=== PATIENT | female | born 1960 | race Caucasian/White ===

== ENCOUNTER → 2020-06-09 15:59 | Outpatient (CLI) | payer OTHER, SELFPAY ==
--- NOTE | ~2020-06-09 | MM_ITS ---
EXAMINATION: MM diagnostic [facility] BI w ana luisa HISTORY: Palpable lump in the subareolar left breast TECHNIQUE: Craniocaudal, mediolateral, and mediolateral oblique 3-D tomosynthesis images of the nicholas ts were performed and synthetic 2-D images were generated. CAD analysis was submitted and interpreted . COMPARISON: 02/04/2014, 03/10/2012, 05/09/2006 BREAST PARENCHYMAL COMPOSITION: The breasts are heterogeneously dense, which may obscure small masses . FINDINGS: Right breast: There is no evidence of suspicious mass, calcification, or architectural distortion to suggest malignancy. There has been no suspicious interval change. Left breast: There is no evidence of suspicious mass, calcification, or architectural distortion to suggest malignancy. There has been no suspicious interval change. No mammographic correlate is identi fied for the reported subareolar breast lump. IMPRESSION: 1. No mammographic correlate identified for the reported palpable abnormality of the left breast. 2. Further evaluation with targeted left breast ultrasound is recommended. BI-RADS Category 0: Incomplete: Needs additional imaging evaluation. Reviewed, dictated and finalized at location A. LRY STORE MANAGER IMPRESSION: 1. No mammographic correlate identified for the reported palpable abnormality o f the left breast. 2. Further evaluation with targeted left breast ultrasound is recommended. BI-RADS Category 0: Incomplete: Needs additional imaging evaluation.
== END ==
PROVIDERS: PCP Family Medicine; Visit Provider Physician Assistant
DX: N63.0 Unspecified lump in unspecified breast (principal); R92.8 Other abnormal and inconclusive findings on diagnostic imaging of breast
CPT/HCPCS: 77062; 77066; G0279

== ENCOUNTER → 2020-06-10 14:16 | Outpatient (CLI) | payer OTHER, SELFPAY ==
--- NOTE | ~2020-06-10 | US_ITS ---
EXAMINATION: US breast LT limited HISTORY: Palpable lump of the subareolar left breast. TECHNIQUE: Limited left breast ultrasound is performed in the subareolar region. FINDINGS: There is a 4 mm round, circumscribed, hypoechoic mass with no posterior features or interna l vascularity corresponding to the palpable abnormality of the left breast near the nipple. IMPRESSION: Given that this is a new palpable finding, ultrasound-guided biopsy is recommended. BI-RADS category 4, suspicious findings. Reviewed, dictated and finalized at location A. ECT FINANCE ANALYST IMPRESSION: Given that this is a new palpable finding, ultrasound-guided biopsy is recommen ded. BI-RADS category 4, suspicious findings.
== END ==
PROVIDERS: PCP Family Medicine; Visit Provider Family Medicine
DX: N63.23 Unspecified lump in the left breast, lower outer quadrant (principal)
CPT/HCPCS: 76642

== ENCOUNTER 2020-07-01 06:57 | Outpatient (NON) | payer OTHER, SELFPAY ==
[2020-07-01 18:45] LABS: SARS-CoV-2 RNA PCR Negative
== END 2020-07-01 06:58 ==
PROVIDERS: PCP Family Medicine
DX: Z01.818 Encounter for other preprocedural examination (principal); Z20.828 Contact with and (suspected) exposure to other viral communicable diseases
CPT/HCPCS: 87635; C9803; U0003

== ENCOUNTER 2025-04-04 10:23 | Emergency (ER) | payer OTHER, SELFPAY ==
[2025-04-04 10:34] VITALS: BP 104/70; PULSE 62; RESP 16; TEMP 36.8; O2SAT 99
--- NOTE | 2025-04-04 11:12 | ED.FEMALEGU ---
HPI - Female Genitourinary General Chief complaint: Urogenital-Female Stated complaint: UTI Time Seen by Provider: 04/04/25 11:12 Source: patient, RN notes reviewed and old records reviewed Mode of arrival: ambulatory Limitations: no limitations History of Present Illness HPI Narrative: 64-year-old female presents to the [facility] with 1 week history of urinary pain/burning, frequency low back ache. Denies fevers. Has been increasing her fluid intake. No other treatment prior to arrival Related Data Allergies Allergy/AdvReac Type Severity Reaction Status Date / Time No Known Allergies Allergy Unknown Verified 11/01/20 11:22 Review of Systems Review of Systems: All systems reviewed & are unremarkable except as noted in HPI and below Constitutional: Constitutional: Reports no additional constitutional complaints Cardiovascular: Cardiovascular: Reports no additional cardiovascular complaints, Denies chest pain and Denies dyspnea Respiratory: Respiratory: Reports no additional respiratory complaints, Denies chest congestion, Denies cough and Denies dyspnea Gastrointestinal: Gastrointestinal: Reports no additional gastrointestinal complaints Genitourinary: Genitourinary: Reports as per HPI Musculoskeletal: Musculoskeletal: Reports no additional musculoskeletal complaints Integumentary/Breasts: Skin/Breast: Reports system reviewed and no additional complaints, except as docu PMFSH Past Medical History Medical History Mass of lower outer quadrant of left breast Surgical History Surgical History H/O foot surgery H/O lumpectomy Left breast, [facility] Family History Family History Father Lung cancer Social History Social History Smoking status: Never smoker Alcohol intake: current Alcohol use details: socially, moderate Substance use: never Comments At the time of my signature, I reviewed and agree with the nursing past medical, surgical, social, and family history. There is no relevant family history pertinent to the patient complaint. Exam Const: General: cooperative, healthy appearing, comfortable, no acute distress, well developed, alert and well nourished Nutritional Appearance: well nourished Orientation/consciousness: patient oriented x3 Limitations: no limitations HENMT: Head: normal to inspection Eyes: General: appearance normal, both eyes and all related structures Alignment and Position: alignment normal Neck: Neck: normal visual inspection, full ROM, no lymphadenopathy and no meningeal signs Chest: Chest palpation & inspection: normal inspection of the chest Resp: Effort & Inspection: normal respiratory effort and able to speak in complete sentences Auscultation: clear to auscultation bilaterally, no crackles, no rales, no rhonchi and no wheezes Cardio: Rate: regular rate GI: GI Palp: No abdominal tenderness : General: Yes no CVA tenderness Skin: General skin exam: normal color and no rashes or lesions noted Neuro: General: patient oriented x3, gait normal, moves all extremities and no meningeal signs Cognition (Neuro): normal cognition Speech: normal speech Gait exam (Neuro): Normal gait present Extrem: General: normal to inspection, full ROM, capillary refill normal and normal gait Psych: Appearance: grossly normal and well kempt Mental Status: mental status grossly normal Speech and movement: Normal speech and movement present and Clear speech present Affect: normal affect Attitude: cooperative Course Course Level of Care: Express Care Visit Vital Signs Vital signs: Vital Signs Temperature 98.2 F 04/04/25 10:34 Pulse Rate 62 04/04/25 10:34 Respiratory Rate 16 04/04/25 10:34 Blood Pressure 104/70 04/04/25 10:34 Pulse Oximetry 99 04/04/25 10:34 Temperature 98.2 F 04/04/25 10:34 Pulse Rate 62 04/04/25 10:34 Respiratory Rate 16 04/04/25 10:34 Blood Pressure 104/70 04/04/25 10:34 Pulse Oximetry 99 04/04/25 10:34 Reviewed MDM - Female Genitourinary MDM Narrative Medical decision making narrative: Patient sitting in exam room. Patient is nontoxic, vitals are stable. Patient presents with urinary symptoms that have been increasing over the last week. Patient has +3 leukocytes Patient is appropriate for outpatient treatment with close follow-up, will send for urine culture Discharge instructions reviewed with patient, as well as provided in writing per nursing staff. The instructions also include specific and strict return/GO TO THE ER as well as f/u information. All questions have been answered, and the patient deny any further questions with discharge and discharge plan. Some parts of this dictation were generated by voice recognition software and may contain typographical and/or grammatical inaccuracies. Differential Diagnosis Differential diagnosis: Likely urinary tract infection and cystitis Lab Data Labs: Lab Results 04/04/25 Range/Units 11:18 POC Urine Color Yellow POC Urine Clarity Clear POC Urine pH 7.0 POC Ur Specif [place] 1.010 POC Urine Protein Negative (Negative) POC Ur Glucose (UA) Negative (Negative) POC Urine Ketones Negative (Negative) POC Urine Blood 1+ (Negative) POC Urine Nitrite Negative (Negative) POC Urine Bilirubin Negative (Negative) POC Urine Urobilinogen 0.2 POC U Leukocyte Esteras 3+ (Negative) Reviewed Critical Care Time Critical Care Time Critical Care Time: No Discharge Plan Discharge Clinical Impression: Urinary tract infection Qualifiers: Urinary tract infection type: acute cystitis Hematuria presence: with hematuria Qualified Code(s): N30.01 - Acute cystitis with hematuria Patient Disposition: Home Condition: Stable Instructions: Antibiotic Form, Urinary Tract Infection in Women (ED) Additional Instructions: Increased water intake Take Tylenol as needed for pain Take antibiotic as prescribed Today your urine dip showed a probability of a UTI. You have been prescribed an antibiotic. Your urine will be sent to our lab for a culture. If at that time a bacteria grows that is not covered by the antibiotic prescribed you will be notified. Follow-up with primary care For new or worsening symptoms go directly to the emergency room Patient Language: Japanese Prescriptions: New amoxicillin-pot clavulanate 875-125 mg tablet 1 tablet PO Q12H Qty: 10 0RF Follow-up/Referrals: Margaret Huertas MD [Primary Care Provider, Family Practice] - 1 Week Stand Alone Forms: Work/School Release IP Time of Disposition: 11:17
[2025-04-04 11:20] LABS: EDUAAPPEAR Clear; EDUABILI Negative (Negative); EDUABLOOD 1+ (Negative); EDUACOLOR1 Yellow; EDUAGLUCOSE Negative (Negative); EDUAKETONE Negative (Negative); EDUALEUKO 3+ (Negative); EDUANITRATE Negative (Negative); EDUAPH 7.0; EDUAPROTEIN Negative (Negative); EDUASPGRAVITY 1.010; EDUAUROBILI 0.2
== END 2025-04-04 11:21 | disposition home or self-care (01) ==
PROVIDERS: Emergency Provider Nurse Practitioner; PCP Family Medicine
DX: N30.01 Acute cystitis with hematuria (principal)
CPT/HCPCS: 81003; 87077; 87086; 87186; 99213; G0463